=== PATIENT | female | born 1980 | race Caucasian/White ===

== ENCOUNTER 2019-10-07 11:27 | Emergency (ER) | payer BC, MEDICAID ==
[2019-10-07] MEDS ORDERED: HYDROCODONE/ACETAMINOPHEN 5-325 MG TABLET PO ONE (12:09)
[2019-10-07] MEDS ORDERED: DIPH/PERTUSS(ACELL)/TETANUS VAC/PF 0.5 ML SYR (>=10YO) IM ONE (12:09)
[2019-10-07] MEDS ORDERED: LIDOCAINE 1% INJ-PF (10 MG/ML) 30 ML SDV INJ ONE (12:09)
--- NOTE | 2019-10-07 12:11 | ER Document Report ---
HPI - HPI Patient complains to provider of: Leg laceration Time Seen by Provider: 10/07/19 12:09 Onset: Just prior to arrival Onset/Duration: Sudden Quality of pain: Sharp Pain Level: 5 Context: Patient states that she tripped over a metal shelf that was being used to block a doorway to prevent a puppy from getting out of her room. Patient presents with a large laceration to the medial aspect of left leg. Patient with multiple abrasions down the left lower leg. Patient denies any head injury, loss of consciousness nausea or vomiting. Patient denies any concerns about any possible retained foreign body. Associated Symptoms: Other - Leg laceration. denies: Nausea, Vomiting Exacerbated by: Standing, Movement, Walking Relieved by: Denies Similar symptoms previously: No Recently seen / treated by doctor: No - ROS ROS below otherwise negative: Yes Systems Reviewed and Negative: Yes All other systems reviewed and negative - NEURO Neurology: DENIES: Headache, Weakness - GASTROINTESTINAL Gastrointestinal: DENIES: Nausea, Patient vomiting - MUSCULOSKELETAL Musculoskeletal: REPORTS: Extremity pain - DERM Skin Problems: Laceration Past Medical History - General Information source: Patient - Social History Smoking Status: Current Every Day Smoker Frequency of alcohol use: Occasional Drug Abuse: None Occupation: None Lives with: Family Family History: Reviewed & Not Pertinent - Past Medical History Cardiac Medical History: Reports: Hx Hypertension Past Surgical History: Reports: Hx Section Vertical Provider Document - CONSTITUTIONAL Agree With Documented VS: Yes Exam Limitations: No Limitations General Appearance: WD/WN, No Apparent Distress - INFECTION CONTROL TRAVEL OUTSIDE OF THE [place] IN LAST 30 DAYS: No - HEENT HEENT: Atraumatic, Normocephalic - NECK Neck: Normal Inspection, Supple - RESPIRATORY Respiratory: Breath Sounds Normal, No Respiratory Distress - MUSCULOSKELETAL/EXTREMETIES Musculoskeletal/Extremeties: VIANNEY ANDREW - NEURO Level of Consciousness: Awake, Alert, Appropriate Motor/Sensory: No Motor Deficit - DERM Integumentary: Warm, Dry, Laceration - 10 cm Laceration to the medial aspect of left distal medial thigh no active bleeding Course - Vital Signs Vital signs: Temp Pulse Resp BP Pulse Ox 98.9 F 70 18 138/96 H 100 10/07/19 11:46 10/07/19 11:46 10/07/19 11:46 10/07/19 11:46 10/07/19 11:46 Procedures - Laceration/Wound Repair Left Leg Wound length (cm): 10 Wound's Depth, Shape: Linear Anesthetic type: 1% Lidocaine Wound explored: Clean, No foreign body removed Wound Repaired With: Sutures Suture Size/Type: 4:0, Nylon Number of Sutures: 13 Layer Closure?: No Post-procedure wound care: Sterile dressing applied Post-procedure NV exam normal: Yes Complications: No Adult Front & Back picture: 1 - lac Discharge - Discharge Clinical Impression: Laceration of left leg Qualifiers: Encounter type: initial encounter Qualified Code(s): S81.812A - Laceration without foreign body, left lower leg, initial encounter Condition: Stable Disposition: HOME, SELF-CARE Instructions: Use of Crutches ([facility]), Laceration Care ([facility]), Prophylactic Antibiotic ([facility]), Tetanus Immunization Given ([facility]) Additional Instructions: Return immediately for any new or worsening symptoms Followup with your primary care provider, call tomorrow to make a followup appointment Suture removal in 14 days Prescriptions: Cephalexin Monohydrate [Keflex 500 mg Capsule] 500 mg PO Q6H 5 Days capsule Naproxen [Naprosyn 250 Nmg Tablet] 1 tab PO BID #14 tablet Hydrocodone/Acetaminophen [[place] 5-325 mg Tablet] 1 tab PO Q6 PRN #6 tablet PRN Reason: Referrals: JANICE LLOYD PA-C [NO LOCAL MD] - Follow up as needed
[2019-10-07 13:35] VITALS: BP 136/92
== END 2019-10-07 13:36 | disposition home or self-care (01) ==
LOC: ER 11:27
DX: S81.812A Laceration without foreign body, left lower leg, initial encounter (principal); W18.09XA Striking against other object with subsequent fall, initial encounter; Y92.009 Unspecified place in unspecified non-institutional (private) residence as the place of occurrence of the external cause; F17.200 Nicotine dependence, unspecified, uncomplicated; Z23 Encounter for immunization
CPT/HCPCS: 99283; 90471; 90715; 12004; J3490